=== PATIENT | female | born 1985 | race Caucasian/White ===

== ENCOUNTER → 2018-10-31 | Outpatient (REF) ==
--- NOTE | 2018-10-31 12:26 | REP ---
Right shoulder series: Three views. History: Degenerative disc disease. No comparison study. Findings: The right glenohumeral and acromioclavicular joints are normally aligned. Periarticular soft tissues are unremarkable. No erosive changes seen. No post traumatic abnormality. Impression: Negative radiographs of the right shoulder. Electronically Signed by Tobin Carroll MD 10/31/2018 12:17 P
--- NOTE | 2018-10-31 12:47 | REP ---
CERVICAL SPINE SERIES: FOUR VIEWS. HISTORY: Degenerative disc disease. FINDINGS: Lateral view of the cervical spine shows normal alignment and preserved vertebral body heights. Disc spaces are maintained. Prevertebral soft tissues are unremarkable. AP view shows no abnormality. Open-mouth odontoid view shows normal alignment at C1-C2. IMPRESSION: No abnormality noted. Negative radiographs of the cervical spine. Electronically Signed by Tobin Carroll MD 10/31/2018 01:06 P
== END ==
LOC: M SMT 10:55
PROVIDERS: ATTEND Internal Medicine
DX: M54.2 Cervicalgia (principal); M25.511 Pain in right shoulder